=== PATIENT | male | born 1950 | race Caucasian/White ===

== ENCOUNTER 2017-01-10 23:57 | Inpatient (IN) | payer OTHER, BC ==
[~2017-01-10] VITALS: Ht 180.3 cm; Wt 90.0 kg
--- NOTE | 2017-01-11 00:08 | NUR ---
EKG IN PROGRESS BY HEATHER MEZA
--- NOTE | 2017-01-11 00:23 | NUR ---
PT BROUGHT IN TO VIA WHEELCHAIR FROM TRIAGE. PT ALERT AND AWAKE. PT REPORTS PALPITATIONS BEGAN AT HOME WHILE LAYING IN BED READING A BOOK. PT REPORTS NO CHEST PAIN NOR SOB. PT STATES CARDIAC STENT PLACEMENT LAST YEAR. PT PLACED ON FULL MONITOR BY DERRICK ROMERO FOR SAFETY PRECAUTIONS. PT AT BEDSIDE. NO SX OF DISTRESS NOTED.
--- NOTE | 2017-01-11 00:26 | NUR ---
PT IN AWAITING FOR MSE.
[2017-01-11] MEDS ORDERED: METOPROLOL SUCC50 M2 PO (00:28)
[2017-01-11] MEDS ORDERED: GOOD SENSE ASPI81 M3 PO (00:29)
[2017-01-11] MEDS ORDERED: TRAMADOL HCL50 MG PO (00:29)
[2017-01-11] MEDS ORDERED: LYRICA75 M1 PO (00:30)
[2017-01-11] MEDS ORDERED: ATORVASTATIN CA40 M1 PO (00:30)
--- NOTE | 2017-01-11 00:31 | NUR ---
DR NICOLE AT BEDSIDE FOR MSE.
--- NOTE | 2017-01-11 00:50 | NUR ---
PT GIVEN IV MED PER DR NICOLE ORDERS. PT EDUCATED ON REASON FOR ORDERED MED. PT REPORTS NO ALLERGIES TO MED. IV SITE PATENT WITH NO SX OF INFILTRATION NOTED.
--- NOTE | 2017-01-11 00:51 | NUR ---
SPRAY STAINER AT BEDSIDE FOR BLOOD DRAW.
[2017-01-11 01:00] LABS: BASOPHIL % 0.5 % (0-2); PLATELET COUNT 184 x10^3mcL (130-400); RED CELL DISTRIBUTION WIDTH 13.5 % (11.5-14.5)
[2017-01-11 01:08] LABS: CARBON DIOXIDE 29.7 mmol/L (21-32); CHLORIDE SERUM 111 mmol/L (98-107); GFR1 > 60 mL/min; GLUCOSE SERUM 113 mg/dL (74-106); POTASSIUM SERUM 3.8 mmol/L (3.5-5.1); SODIUM SERUM 146 mmol/L (136-145)
[2017-01-11 01:17] LABS: ALBUMIN 3.4 g/dL (3.4-5.0); ALKALINE PHOSPHATASE 84 U/L (46-116); ALT/SGPT 35 U/L (16-63); AST/SGOT 22 U/L (15-37); BILIRUBIN TOTAL 0.34 mg/dL (0.20-1.00); FREE T4 0.97 ng/dL (0.76-1.46); TOTAL PROTEIN, SERUM 6.5 g/dL (6.4-8.2)
[2017-01-11 01:57] LABS: microscopic required? NO
--- NOTE | 2017-01-11 02:03 | NUR ---
DR NICOLE AT BEDSIDE DISCUSSING PLAN OF CARE.
--- NOTE | 2017-01-11 02:15 | NUR ---
XRAY AT BEDSIDE.
--- NOTE | 2017-01-11 02:21 | NUR ---
RESIDENT AT BEDSIDE. NO SX OF DISTRESS NOTED
[2017-01-11 02:29] LABS: urine erythrocyte NEGATIVE (NEGATIVE)
[2017-01-11 02:47] LABS: CHOLESTEROL/HDL RATIO 3.5; PHOSPHOROUS 3.6 mg/dL (2.5-4.9)
[2017-01-11 02:58] LABS: FREE THYROXINE INDEX 2.4 ug/dL (1.4-4.5); T4(THYROXINE) 6.6 ug/dL (4.7-13.3)
[2017-01-11 03:06] LABS: T3 TOTAL 1.17 ng/mL
--- NOTE | 2017-01-11 04:36 | NUR ---
PT GIVEN PO MED PER MD ORDERS. NO DIFFICULTY SWALLOWING NOTED.
--- NOTE | 2017-01-11 05:51 | NUR ---
PT SLEEPING IN BED, VISIBLE CHEST RISE NOTED UPON INHALATION. PT EASILY AWAKEN WHEN NAME IS CALLED. NO SX OF DISTRESS NOTED AT THIS TIME. COMFORT MEASURES IN PLACE.
--- NOTE | 2017-01-11 07:10 | NUR ---
CHANGE OF SHIFT REPORT GIVEN TO DERRICK DENNIS TO CONTINUE CARE.
--- NOTE | 2017-01-11 07:22 | NUR ---
SLEEPING, NO SIGNS OF DISTRESS NOTED, NO SIGNS OF RESP DISTRESS. 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
[2017-01-11 07:29] LABS: AMPHETAMINE QUAL UR NONE DETECTED (NEG <=1000)
--- NOTE | 2017-01-11 07:39 | NUR ---
PT ADMITTED TO TELE, REPORT GIVEN TO FORTUNATO CANAS NURSE.
[2017-01-11 08:10] VITALS: BP 110/68
--- NOTE | 2017-01-11 08:30 | NUR ---
RECEIVED PT FROM ER BY MARY KATE. PT AA/OX4. PT NO COMPLAIN OF PALPITATION AND PAIN AT THIS TIME. PT BREATHING ON RA, EVEN, UNLABORED. PT'S VS CHECKED: BP 110/68, HR 54 BPM, TEMP 97.9, O2 SAT 98% ON RA. IV SITE PATENT, INTACT. WILL PROVIDE CARE AND RESUME IVF PER ORDER.
--- NOTE | 2017-01-11 11:00 | NUR ---
DR. LISA SAW PT AND STATED PT IS OK TO GO HOME. PAGE AND PAGE GATED DR. NORMAN TO COMFIRM ORDER ABOUT HEPARIN DRIP. WAITING FOR CALL BACK.
[2017-01-11 12:23] VITALS: BP 10/68
--- NOTE | 2017-01-11 16:52 | NUR ---
PT DECIDED TO AMA AFTER DR. PEREZ TALKED TO HIM. AMA SIGNED. PT NO COMPLAIN OF CHEST DISCOMFORT AT THIS TIME. NO DISTRESSED NOTED. IV IS REMOVED. 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
== END 2017-01-11 17:05 | disposition left against medical advice (07) | DRG 308 ==
LOC: ED 23:57 → DU 01-11 01:42
PROVIDERS: Emergency Medicine; ADMIT Family Medicine
DX: I48.0 Paroxysmal atrial fibrillation (principal); N17.0 Acute kidney failure with tubular necrosis; E87.0 Hyperosmolality and hypernatremia; J98.11 Atelectasis; I10 Essential (primary) hypertension; I25.10 Atherosclerotic heart disease of native coronary artery without angina pectoris; E02 Subclinical iodine-deficiency hypothyroidism; E87.8 Other disorders of electrolyte and fluid balance, not elsewhere classified; E78.5 Hyperlipidemia, unspecified; G89.29 Other chronic pain; M54.5 Low back pain; Z98.1 Arthrodesis status; Z95.5 Presence of coronary angioplasty implant and graft; Z68.27 Body mass index [BMI] 27.0-27.9, adult; F10.10 Alcohol abuse, uncomplicated
CPT/HCPCS: 83880; 84439; G0480; J3490; J7030; J7040